=== PATIENT | male | born 1970 | race Caucasian/White ===

== ENCOUNTER 2021-02-19 10:46 | Outpatient (CLI) | payer BC, OTHER | END 2021-02-19 10:47 | disposition home or self-care (01) | LOC: BICRAD 10:46 | PROVIDERS: ATTEND Specialist | DX: M25.562 Pain in left knee (principal); M54.5 Low back pain; M47.816 Spondylosis without myelopathy or radiculopathy, lumbar region | CPT/HCPCS: 72100 ==